=== PATIENT | male | born 1960 | race Caucasian/White ===

== ENCOUNTER 2016-11-18 15:09 | Inpatient (IN) | payer OTHER ==
[~2016-11-18] VITALS: Ht 182.9 cm; Wt 104.4 kg
[2016-11-18 16:37] LABS: BUN/CREATININE RATIO 13 (0-10)
[2016-11-18 16:47] LABS: HEMOGLOBIN 13.8 gm/dl (14.0-17.5); RED BLOOD COUNT 5.02 M/UL (4.20-5.50); WHITE BLOOD COUNT 8.8 K/UL (4.5-11.0)
[2016-11-18] MEDS ORDERED: PROTONIX40 M1 PO (21:34)
[2016-11-18] MEDS ORDERED: GLUCOPHAGE1000 MG PO (21:34)
[2016-11-18] MEDS ORDERED: GLUCOTROL 10 MG10 MG PO (21:34)
[2016-11-18] MEDS ORDERED: LISINOPRIL30 MG PO (21:34)
[2016-11-18] MEDS ORDERED: PRAVACHOL40 MG PO (21:43)
[2016-11-18] MEDS ORDERED: NORVASC10 MG PO (21:43)
--- NOTE | 2016-11-19 00:22 | NUR ---
DR. MEDINA ON FLOOR AND MADE AWARE OF ADMISSION VITAL SIGNS-ELEVATED BLOOD PRESSURE. STAT CE AND EKG DONE. AMD. NTG 0.4ML SL X 1 AT 2357 FOR CHEST TIGHTNESS WITH DR. MEDINA IN ROOM. PT. STATES, "HELPED TIGHTNESS, BUT HAS REALLY BAD HEADACHE NOW." 192/[address] MEDINA MADE DECISION TO TRANSFER TO ICU. PT. WAS MEDICATED WITH ISORDIL 30MG PO, METEPROLOL 50MG PO, PLAVIX 300MG PO, TYLENOL 650MG PO, MORPHINE 2MG IV. REPORT TO KADI NORWOOD RN. PT. TRANSPORTED VIA STRETCHER. DENIES PAIN AT TRANSPORT. STAT COAGS DRAWN AT 0000 FOR HEPARIN PROTOCOL.
[2016-11-19 05:01] LABS: HEMOGLOBIN 13.4 gm/dl (14.0-17.5); RED BLOOD COUNT 4.85 M/UL (4.20-5.50); WHITE BLOOD COUNT 10.2 K/UL (4.5-11.0)
[2016-11-19 05:41] LABS: BUN/CREATININE RATIO 16 (0-10)
[2016-11-20] MEDS ORDERED: ASPIRIN81 MG PO (16:35)
[2016-11-20] MEDS ORDERED: LIPITOR TAB 2020 MG PO (16:35)
[2016-11-20] MEDS ORDERED: ZESTRIL40 MG PO (16:36)
[2016-11-20] MEDS ORDERED: LOPRESSOR 25 MG25 MG PO (16:37)
== END 2016-11-20 17:15 | disposition home or self-care (01) | DRG 304 ==
LOC: ER1 15:09 → ZEROF 17:53 → MED SURG 4 20:36 → CCU 11-19 00:20 → MED SURG 4 11-19 21:00
PROVIDERS: Emergency Medicine; ADMIT Internal Medicine
DX: I16.1 Hypertensive emergency (principal); I50.31 Acute diastolic (congestive) heart failure; I47.2 Ventricular tachycardia; I11.0 Hypertensive heart disease with heart failure; E11.9 Type 2 diabetes mellitus without complications; K21.9 Gastro-esophageal reflux disease without esophagitis; E78.5 Hyperlipidemia, unspecified; E66.9 Obesity, unspecified; Z82.49 Family history of ischemic heart disease and other diseases of the circulatory system; Z79.84 Long term (current) use of oral hypoglycemic drugs
CPT/HCPCS: ECHO; 36415; 71010; 78452; 80053; 80061; 82550; 82553; 82962; 83036; 83735; 83874; 83880; 84439; 84443; 84484; 85025; 85610; 85730; 93005; 93017; 93306; 99285; A9502; J1644; J2270; J2550; J2785

== ENCOUNTER 2020-10-10 19:26 | Emergency (ER) | payer OTHER ==
[~2020-10-10 19:26] MED LIST: ARTIFICIALS TEA30 ML OP; ASPIRIN81 MG PO; GLUCOPHAGE1000 MG PO; GLUCOTROL 10 MG10 MG PO; LIPITOR TAB 2020 MG PO; LISINOPRIL30 MG PO; LOPRESSOR 25 MG25 MG PO; NORVASC10 MG PO; PRAVACHOL40 MG PO; PREDNISONE20 MG PO; PROTONIX40 M1 PO; VALTREX1000 MG PO; ZESTRIL40 MG PO
[2020-10-10] MEDS ORDERED: CEPHALEXIN500 MG PO (22:28)
== END 2020-10-10 22:46 | disposition home or self-care (01) ==
LOC: ER1 19:26
DX: S51.011A Laceration without foreign body of right elbow, initial encounter (principal); I10 Essential (primary) hypertension; E11.9 Type 2 diabetes mellitus without complications; Z79.899 Other long term (current) drug therapy; W22.8XXA Striking against or struck by other objects, initial encounter; Z23 Encounter for immunization
CPT/HCPCS: 12001; 71045; 73080; 73200; 90471; 90715; 96374; 96375; 99284; J0690; J2270; J2405

== ENCOUNTER 2021-01-07 09:39 | Emergency (ER) | payer OTHER ==
[~2021-01-07 09:39] MED LIST changes: +CEPHALEXIN500 MG PO
[2021-01-07 11:12] LABS: HEMOGLOBIN 13.9 gm/dl (14.0-17.5); RED BLOOD COUNT 5.08 M/UL (4.20-5.50); WHITE BLOOD COUNT 6.6 K/UL (4.5-11.0)
[2021-01-07 11:50] LABS: BUN/CREATININE RATIO 7 (0-10)
== END 2021-01-07 13:37 | disposition home or self-care (01) ==
LOC: ER1 09:39
PROVIDERS: Student in an Organized Health Care Education/Training Program
DX: A08.4 Viral intestinal infection, unspecified (principal); R42 Dizziness and giddiness; I10 Essential (primary) hypertension; E11.9 Type 2 diabetes mellitus without complications; Z20.822 Contact with and (suspected) exposure to COVID-19
CPT/HCPCS: 0240U; 80053; 81001; 82272; 82550; 82553; 83605; 83690; 83735; 83874; 84100; 84484; 85025; 85652; 86140; 99284; Q9967

== ENCOUNTER → 2022-03-27 | Outpatient (CLI) | payer OTHER | LOC: HEART CORB 14:06 | DX: I47.1 Supraventricular tachycardia (principal); R00.1 Bradycardia, unspecified | CPT/HCPCS: 93306 ==